=== PATIENT | male | born 1950 | race Caucasian/White ===

== ENCOUNTER 2017-11-10 17:41 | Emergency (ER) | payer OTHER ==
[2017-11-10 18:12] LABS: Urine Blood NEGATIVE (NEG); Urine Glucose NEGATIVE (NEG); Urine Protein NEGATIVE (NEG); Urine Specific Gravity 1.015 (1.005-1.030)
[2017-11-10] MEDS ORDERED: NA CHLORIDE 0.9% 1,000 ML ONE (18:18)
--- NOTE | 2017-11-10 18:28 | RAD REPORT ---
EXAM DESCRIPTION: CT - Head Brain Wo Cont - 11/10/2017 6:16 pm CLINICAL HISTORY: Syncope COMPARISON: None. TECHNIQUE: All CT scans are performed using dose optimization technique as appropriate and may inclu de automated exposure control or mA/KV adjustment according to patient size. FINDINGS: No intracranial hemorrhage, hydrocephalus or extra-axial fluid collection.Small old lacuna e are present in the basal ganglia bilaterally.No areas of brain edema or evidence of midline shift. The paranasal sinuses and mastoids are clear. The calvarium is intact. IMPRESSION: No acute intracranial abnormality.
--- NOTE | 2017-11-10 18:39 | RAD REPORT ---
EXAM DESCRIPTION: RAD - Chest Single View - 11/10/2017 6:30 pm CLINICAL HISTORY: Syncope, chest pain COMPARISON: 09/07/2014, 04/17/2008 FINDINGS: Portable technique limits examination quality. The lungs are grossly clear. The heart is normal in size. No displaced fractures. IMPRESSION: No acute intrathoracic process suspected.
--- NOTE | 2017-11-10 18:40 | ER ---
Nurse's Notes [facility] Name: Akira Resendiz Jr Age: 67 yrs Sex: Male : 1950 Arrival Date: 11/10/2017 Time: 17:48 Bed 24 Private MD: Diagnosis: Presentation: 11/10 17:49 Presenting complaint: Patient states: He was standing on the porch, when he started to aj1 feel light-headed and passed out. States that his family caught him and assisted him to the ground. Patient was discharged from [facility] yesterday where they were attempting to treat a occlusion in his carotid artery. Family states that patient was unconscious for approximately 30 seconds. Patient denies chest pain, SOB, palpitations. Reports light headedness and dizziness. Transition of care: patient was not received from another setting of care. Onset of symptoms was November 10, 2017. Risk Assessment: Do you want to hurt yourself or someone else? Patient reports no desire to harm self or others. Initial Sepsis Screen: Does the patient meet any 2 criteria? No. Patient's initial sepsis screen is negative. Does the patient have a suspected source of infection? No. Patient's initial sepsis screen is negative. Care prior to arrival: Medication(s) given: Normal saline infusion, 250 cc IV initiated. 20 GA, in the right antecubital area, Glucose check: 100. 17:49 Method Of Arrival: [facility]: [facility] aj1 17:49 Acuity: WILI 3 aj1 Triage Assessment: 17:57 General: Appears in no apparent distress. comfortable, Behavior is calm, cooperative, aj1 appropriate for age. Pain: Denies pain. Neuro: Level of Consciousness is awake, alert, obeys commands, Reports a syncopal episode. 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 - Social history:: Smoking status: Patient uses tobacco products, 2-3 cigarettes per day. - Ebola Screening: : No symptoms or risks identified at this time. - Family history:: not pertinent. Screenin:58 Abuse screen: Denies threats or abuse. Denies injuries from another. Nutritional aj1 screening: No deficits noted. Tuberculosis screening: No symptoms or risk factors identified. 20:53 Fall Risk None identified. aj1 Assessment: 17:58 General: Appears in no apparent distress. comfortable, Behavior is calm, cooperative, aj1 appropriate for age. Pain: Denies pain. Neuro: Level of Consciousness is awake, alert, obeys commands, Oriented to person, place, time, situation, Edge Stripper are equal bilaterally Moves all extremities. Speech is normal, Facial symmetry appears normal, Intact Reports a syncopal episode Denies blurred vision headache. Cardiovascular: Denies chest pain, palpitations, shortness of breath, Heart tones S1 S2 present Patient's skin is warm and dry. Rhythm is regular. Respiratory: Airway is patent Respiratory effort is even, unlabored, Respiratory pattern is regular, symmetrical, Breath sounds are clear bilaterally. GI: No signs and/or symptoms were reported involving the gastrointestinal system. : No signs and/or symptoms were reported regarding the genitourinary system. EENT: No signs and/or symptoms were reported regarding the EENT system. Derm: No signs and/or symptoms reported regarding the dermatologic system. Skin is pink, warm \T\ dry. normal. Musculoskeletal: No signs and/or symptoms reported regarding the musculoskeletal system. Circulation, motion, and sensation intact. 18:45 Reassessment: Patient states that he does not want to be admitted, and would like to aj talk to Dr. Shields, notified Dr. Shields of patient request. 18:45 Reassessment: Patient appears in no apparent distress at this time. No changes from aj1 previously documented assessment. Patient and/or family updated on plan of care and expected duration. Pain level reassessed. Patient is alert, oriented x 3, equal unlabored respirations, skin warm/dry/pink. 19:00 Reassessment: Ultrasound at bedside to take patient, Dr. Shields says he will wait and aj1 talk to the patient when he returns from ultrasound. 19:55 Reassessment: Patient states that he does not want to be admitted, he feels fine now aj1 and he is not feeling dizzy or light headed at all. Notified VESTA Steiner of patient complaint. 20:00 Reassessment: VESTA Steiner at bedside to talk to patient about risks of leaving AMA. aj1 Vital Signs: 17:57 BP 166 / 98; Pulse 92; Resp 15; Temp 98.1; Pulse Ox 99% on R/A; Weight 83.01 kg; Height aj1 6 ft. 0 in. (182.88 cm); Pain 0/10; 20:13 BP 158 / 85; Pulse 81; Resp 18; Pulse Ox 99% ; aj1 20:50 BP 152 / 75; Pulse 88; Resp 18; Pulse Ox 97% ; aj1 17:57 Body Mass Index 24.82 (83.01 kg, 182.88 cm) aj1 ED Course: 17:48 Patient arrived in ED. aj1 17:49 Sophia Loco, RN is Primary Nurse. aj1 17:54 Triage completed. aj1 17:57 Arm band placed on. aj1 17:58 Patient has correct armband on for positive identification. Placed in gown. Bed in low aj1 position. Call light in reach. Side rails up X 1. monitor worker on. Pulse ox on. NIBP on. 17:58 No provider procedures requiring assistance completed. Maintain EMS IV. Dressing aj1 intact. Good blood return noted. Site clean \T\ dry. Gauge \T\ site: 20 g to right FA. 18:01 Aayush Shields MD is Attending Physician. maninder 18:16 CT Head Brain wo Cont In Process Unspecified. EDMS 18:27 X-ray completed. Portable x-ray completed in exam room. Patient tolerated procedure mh1 well. 18:31 XRAY Chest (1 view) In Process Unspecified. EDMS 18:39 Brad Ramsey MD is Hospitalizing Provider. maninder 20:53 IV discontinued, intact, bleeding controlled, No redness/swelling at site. Pressure aj1 dressing applied. Administered Medications: 19:04 Drug: NS 0.9% 500 ml Route: IV; Rate: bolus; Site: right forearm; aj1 20:53 Follow up: IV Status: Completed infusion; IV Intake: 1000ml aj1 19:04 Drug: NS 0.9% 1000 ml Route: IV; Rate: 125 ml/hr; Site: left forearm; aj1 20:52 Follow up: IV Status: Completed infusion aj1 20:15 Not Given (Patient states he already took his aspirin today): Aspirin 81 mg PO once aj1 20:16 Not Given (Patient states that he already took his Plavix today): PlaVIX 75 mg PO once; aj1 give if not taking today already Intake: 20:53 IV: 1000ml; Total: 1000ml. aj1 Outcome: 18:40 Decision to Hospitalize by Provider. [facility] 20:53 AMA AMA form signed aj1 20:53 Condition: unchanged 20:55 Patient left the ED. aj1 Signatures: Dispatcher [employer] Sophia Caballero RN RN aj1 Aayush Shields MD MD cha Harvey, Martha [facility]
--- NOTE | 2017-11-10 18:40 | EDPHYS ---
Physician Documentation [facility] Name: Akira Resendiz Jr Age: 67 yrs Sex: Male : 1950 Arrival Date: 11/10/2017 Time: 17:48 Bed 24 Private MD: ED Physician Aayush Shields HPI: 11/10 18:33 This 67 yrs old Male presents to ER via EMS with complaints of Syncope. maninder 18:33 The patient has experienced syncope, became unresponsive. Onset: The symptoms/episode maninder began/occurred just prior to arrival. Duration: This was a single episode, that lasted 30 second(s). Context: the episode(s) was witnessed, by family. Associated injury: The patient did not suffer any apparent associated injury. Associated signs and symptoms: The patient has no apparent associated signs or symptoms. Current symptoms: Currently, the patient is not experiencing any symptoms. The patient has not experienced similar symptoms in the past. 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 - Social history:: Smoking status: Patient uses tobacco products, 2-3 cigarettes per day. - Ebola Screening: : No symptoms or risks identified at this time. - Family history:: not pertinent. ROS: 18:33 Constitutional: Negative for fever, chills, and weight loss, Eyes: Negative for injury, maninder pain, redness, and discharge, ENT: Negative for injury, pain, and discharge, Neck: Negative for injury, pain, and swelling, Cardiovascular: Negative for chest pain, palpitations, and edema, Respiratory: Negative for shortness of breath, cough, wheezing, and pleuritic chest pain, Abdomen/GI: Negative for abdominal pain, nausea, vomiting, diarrhea, and constipation, Back: Negative for injury and pain, : Negative for injury, bleeding, discharge, and swelling, MS/Extremity: Negative for injury and deformity, Skin: Negative for injury, rash, and discoloration, Psych: Negative for depression, anxiety, suicide ideation, homicidal ideation, and hallucinations, Allergy/Immunology: Negative for hives, rash, and allergies, Endocrine: Negative for neck swelling, polydipsia, polyuria, polyphagia, and marked weight changes, Hematologic/Lymphatic: Negative for swollen nodes, abnormal bleeding, and unusual bruising. 18:33 Neuro: Positive for syncope, weakness. Exam: 18:33 Constitutional: This is a well developed, well nourished patient who is awake, alert, maninder and in no acute distress. Head/Face: Normocephalic, atraumatic. Eyes: Pupils equal round and reactive to light, extra-ocular motions intact. Lids and lashes normal. Conjunctiva and sclera are non-icteric and not injected. Cornea within normal limits. Periorbital areas with no swelling, redness, or edema. ENT: Nares patent. No nasal discharge, no septal abnormalities noted. Tympanic membranes are normal and external auditory canals are clear. Oropharynx with no redness, swelling, or masses, exudates, or evidence of obstruction, uvula midline. Mucous membranes moist. Neck: Trachea midline, no thyromegaly or masses palpated, and no cervical lymphadenopathy. Supple, full range of motion without nuchal rigidity, or vertebral point tenderness. No Meningismus. Chest/axilla: Normal chest wall appearance and motion. Nontender with no deformity. No lesions are appreciated. Cardiovascular: Regular rate and rhythm with a normal S1 and S2. No gallops, murmurs, or rubs. Normal PMI, no JVD. No pulse deficits. Respiratory: Lungs have equal breath sounds bilaterally, clear to auscultation and percussion. No rales, rhonchi or wheezes noted. No increased work of breathing, no retractions or nasal flaring. Abdomen/GI: Soft, non-tender, with normal bowel sounds. No distension or tympany. No guarding or rebound. No evidence of tenderness throughout. Back: No spinal tenderness. No costovertebral tenderness. Full range of motion. Male : Normal genitalia with no discharge or lesions. Skin: Warm, dry with normal turgor. Normal color with no rashes, no lesions, and no evidence of cellulitis. MS/ Extremity: Pulses equal, no cyanosis. Neurovascular intact. Full, normal range of motion. Neuro: Awake and alert, GCS 15, oriented to person, place, time, and situation. Cranial nerves II-XII grossly intact. Motor strength 5/5 in all extremities. Sensory grossly intact. Cerebellar exam normal. Normal gait. Psych: Awake, alert, with orientation to person, place and time. Behavior, mood, and affect are within normal limits. Vital Signs: 17:57 BP 166 / 98; Pulse 92; Resp 15; Temp 98.1; Pulse Ox 99% on R/A; Weight 83.01 kg; Height aj1 6 ft. 0 in. (182.88 cm); Pain 0/10; 20:13 BP 158 / 85; Pulse 81; Resp 18; Pulse Ox 99% ; aj1 20:50 BP 152 / 75; Pulse 88; Resp 18; Pulse Ox 97% ; aj1 17:57 Body Mass Index 24.82 (83.01 kg, 182.88 cm) [facility] MDM: 18:01 Patient medically screened. [facility] 18:36 Data reviewed: vital signs, nurses notes, lab test result(s), EKG, radiologic studies, [facility] CT scan, plain films. 11/10 18:02 Order name: Basic Metabolic Panel; Complete Time: 19:30 [facility] 11/10 18:02 Order name: BNP; Complete Time: 19:30 [facility] 11/10 18:02 Order name: CBC with Diff; Complete Time: :30 [facility] 11/10 18:02 Order name: Ckmb; Complete Time: 19:30 [facility] 11/10 18:02 Order name: CPK; Complete Time: 19:30 [facility] 11/10 18:02 Order name: LFT's; Complete Time: 19:30 [facility] 11/10 18:02 Order name: Magnesium; Complete Time: 19:30 [facility] 11/10 18:02 Order name: PT-INR; Complete Time: 19:30 [facility] 11/10 18:02 Order name: Ptt, Activated; Complete Time: 19:30 [facility] 11/10 18:02 Order name: Troponin (emerg Dept Use Only); Complete Time: 19:30 [facility] 11/10 18:02 Order name: XRAY Chest (1 view); Complete Time: 19:03 [facility] 11/10 18:02 Order name: Lipase; Complete Time: 19:30 [facility] 11/10 18:02 Order name: Urine Culture [facility] 11/10 18:11 Order name: Urine Dipstick--Ancillary (enter results); Complete Time: 19:03 ag 11/10 18:02 Order name: EKG; Complete Time: 18:03 maninder 11/10 18:02 Order name: Cardiac monitoring; Complete Time: 18:08 maninder 11/10 18:02 Order name: EKG - Nurse/Tech; Complete Time: 18:54 [facility] 11/10 18:02 Order name: IV Saline Lock; Complete Time: 18:09 [facility] 11/10 18:02 Order name: Labs collected and sent; Complete Time: 18:54 [facility] 11/10 18:02 Order name: O2 Per Protocol; Complete Time: 18:09 [facility] 11/10 18:02 Order name: O2 Sat Monitoring; Complete Time: 18:09 [facility] 11/10 18:02 Order name: Urine Dipstick-Ancillary (obtain specimen); Complete Time: 18:09 [facility] 11/10 18:02 Order name: CT Head Brain wo Cont; Complete Time: 19:03 [facility] 11/10 18:33 Order name: Carotid Artery Bilateral [facility] 11/10 18:45 Order name: CONS Physician Consult [facility] 11/10 20:00 Order name: US [facility] Administered Medications: 19:04 Drug: NS 0.9% 500 ml Route: IV; Rate: bolus; Site: right forearm; aj1 20:53 Follow up: IV Status: Completed infusion; IV Intake: 1000ml aj1 19:04 Drug: NS 0.9% 1000 ml Route: IV; Rate: 125 ml/hr; Site: left forearm; aj1 20:52 Follow up: IV Status: Completed infusion aj1 20:15 Not Given (Patient states he already took his aspirin today): Aspirin 81 mg PO once aj1 20:16 Not Given (Patient states that he already took his Plavix today): PlaVIX 75 mg PO once; aj1 give if not taking today already Disposition: 11/10/17 20:54 Patient has left against medical advice. - Patients states they are going to Home. - Condition is Fair. Signatures: Dispatcher [employer] EDSophia Chang RN RN aj1 Webb, Martha, RN RN mw Anderson, Corey, MD MD cha Corrections: (The following items were deleted from the chart) 19:18 18:40 Hospitalization Ordered by Brad Ramsey MD for Observation. Preliminary diagnosis is Syncope and collapse. Bed requested for Telemetry/MedSurg (observation). Status is Observation. Condition is Stable. Problem is new. Symptoms have improved. UTI on Admission? No. maninder 20:54 19:18 11/10/2017 18:40 Hospitalization Ordered by Brad Ramsey MD for Observation. aj1 Preliminary diagnosis is Syncope and collapse. Bed requested for Telemetry/MedSurg (observation). Status is Observation. Condition is Stable. Problem is new. Symptoms have improved. UTI on Admission? No. mw 20:55 20:54 11/10/2017 20:54 Patients has left against medical advice. Patient states they aj1 are going to Home. Condition is Fair. aj1
[2017-11-10 19:09] LABS: Absolute Lymphocytes (CBC) 1.3 K/uL (0.7-4.9); Absolute Monocytes 0.5 K/uL (0.1-1.3); Absolute Neutrophil 6.3 K/uL (1.8-8.0); Basophils % 0.3 % (0-1.3); Eosinophils % 2.1 % (0-4.4); Hematocrit 43.9 % (39.6-49.0); Lymphocytes % 16.1 % (15.3-44.8); MCH 30.6 pg (27.0-35.0); MPV 8.3 fL (7.6-11.3); Monocytes % 5.5 % (3.3-12.3); RBC Red Blood Cell Count 4.72 M/uL (4.33-5.43)
[2017-11-10 19:13] LABS: Protime INR 1.03
[2017-11-10 19:17] LABS: Potassium 3.8 mEq/L (3.6-5.0)
[2017-11-10 19:24] LABS: Bilirubin Direct 0.2 mg/dL (0-0.2); Bilirubin Total 0.9 mg/dL (0.3-1.2); CKMB Creatine Kinase MB 1.4 ng/ml (0.3-4.0); Magnesium 1.9 mg/dL (1.8-2.5); Protein, Total 7.5 g/dL (6.0-8.3)
[2017-11-10] MEDS ORDERED: ACETAMINOPHEN 500 MG TAB PO PRN (19:57)
[2017-11-10] MEDS ORDERED: ALPRAZOLAM 0.25 MG TABLET PO PRN (19:57)
[2017-11-10] MEDS ORDERED: MORPHINE 4 MG/ML SYR IV PRN (19:57)
--- NOTE | 2017-11-10 19:59 | RAD REPORT ---
EXAM DESCRIPTION: CHRISTOPHER - CP - 11/10/2017 7:51 pm CLINICAL HISTORY: Syncope. COMPARISON: None. TECHNIQUE: Real-time sonographic evaluation of both carotid systems was performed. Doppler interroga tion was performed with waveform tracing bilaterally. FINDINGS: The left internal carotid artery appears completely occluded. The left external carotid ar aletha was not well visualized. The left common carotid artery demonstrates significantly diminished fl ow. Moderate mixed plaquing is present involving the proximal right internal carotid artery. Proximal rig ht ICA demonstrates peak systolic velocity of 187 cm/second. This indicates moderate stenosis estimat ed at 50-70%. Antegrade flow seen in both vertebral arteries. IMPRESSION: Occluded left internal carotid artery. Moderate (50-70%) stenosis proximal left internal carotid artery. Consider followup MR angiography of the neck vessels for more detailed assessment.
[2017-11-11] MEDS ORDERED: LISINOPRIL 10 MG TAB PO SCH (09:00)
[2017-11-11] MEDS ORDERED: ENOXAPARIN 40 MG/0.4 ML SQ SCH (09:00)
[2017-11-11] MEDS ORDERED: ASPIRIN 325 MG TAB PO SCH (09:00)
--- NOTE | 2017-11-11 10:19 | EKG ---
Test Date: 2017-11-10 Test Time: 18:48:18 Impression Printer: BROOK MEASUREMENT RESULTS: Intervals: Rate: 89 CA: 152 QRSD: 76 QT: 354 QTc: 430 [place]: P: 58 CA: 152 QRS: 8 T: 49 INTERPRETIVE STATEMENTS: Normal sinus rhythm Septal infarct, age undetermined Abnormal ECG No previous ECG available for comparison Electronically Signed On 11-11-17 10:18:46 CDT by Faisal Gonzalez
--- NOTE | 2017-11-11 12:11 | P.PN ---
Date of Service: 11/11/17 Patient left against medical advice before being seen.
== END 2017-11-10 20:50 | disposition left against medical advice (07) ==
LOC: ER 17:41 → ERHOLD 18:41 → UNDOADMOB 18:41 → ERHOLD 20:18 → 2ND 20:18 → ER 20:50 → UNDODISOB 20:50
DX: R53.1 Weakness (principal); E78.5 Hyperlipidemia, unspecified; I25.2 Old myocardial infarction; F17.210 Nicotine dependence, cigarettes, uncomplicated; Z79.01 Long term (current) use of anticoagulants; Z79.82 Long term (current) use of aspirin; Z85.12 Personal history of malignant neoplasm of trachea
CPT/HCPCS: 36415; 70450; 71045; 80048; 80076; 81003; 82550; 82553; 83690; 83735; 83880; 84484; 85025; 85610; 85730; 87086; 87088; 93005; 93880; 96360; 96361; 99284; G0378 ×2; J7030

== ENCOUNTER 2022-11-02 07:15 | Day surgery (SDC) | payer OTHER ==
--- NOTE | 2022-10-28 14:50 | RAD REPORT ---
EXAM DESCRIPTION: RAD - Chest Pa And Lat (2 Views) - 10/28/2022 2:44 pm CLINICAL HISTORY: pre op for surgery Chest pain. COMPARISON: Chest Single View dated 11/10/2017; CHEST PA AND LAT 2 VIEW dated 09/07/2012; CHEST PA AND LAT 2 VIEW dated 04/17/2008; CHEST PA AND LAT 2 VIEW dated 09/21/2002 TECHNIQUE: PA and lateral views of the chest were obtained. FINDINGS: The lungs are hyperexpanded compatible with COPD. The heart is upper limit of normal in si ze. No fracture or aggressive bony process. IMPRESSION: COPD without acute process identified. The USPSTF recommends annual screening for lung cancer with low-dose CT (LDCT) in adults aged 50 to 80 years who have a 20 pack-year smoking history and currently smoke or have quit within the past 15 years.
[2022-10-28 15:00] LABS: Absolute Lymphocytes (CBC) 2.2 K/uL (0.7-4.9); Lymphocytes % 31.1 % (15.3-44.8); MCV 93.6 fL (80-100); MPV 8.6 fL (7.6-11.3); RBC Red Blood Cell Count 4.27 M/uL (4.33-5.43)
[2022-10-28 15:17] LABS: Potassium 4.4 mEq/L (3.5-5.1)
[2022-11-02] MEDS ORDERED: Ringers Lactate 1,000 ML IV ONE (07:37)
[2022-11-02] MEDS ORDERED: CEFAZOLIN SODIUM 1 GM/VIAL ONE (07:38)
[2022-11-02] MEDS ORDERED: MIDAZOLAM HCL 2 MG/2 ML INJ ONE (08:12)
[2022-11-02] MEDS ORDERED: ONDANSETRON 4 MG/2 ML VIAL ONE (08:12)
[2022-11-02] MEDS ORDERED: FENTANYL CITR 100 MCG/2 ML ONE (08:12)
[2022-11-02] MEDS ORDERED: LIDOCAINE 2% MPF 5 ML VIAL ONE (08:12)
[2022-11-02] MEDS ORDERED: propofoL 200 MG/20 ML VIAL IV ONE (08:12)
[2022-11-02] MEDS ORDERED: dexAMETHasone 10 MG/ML VIAL ONE (08:13)
[2022-11-02] MEDS ORDERED: KETOROLAC 30 MG/ML INJ ONE (09:12)
[2022-11-02] MEDS ORDERED: Phenylephrine HCl 10 MG/ML 1 ML VIAL ONE (09:34)
--- NOTE | 2022-11-02 09:36 | P.BOP ---
Preoperative diagnosis: recurrent left inguinal hernia Postoperative diagnosis: same Primary procedure: Open repair of tender recurrent left inguinal hernia with mesh Estimated blood loss: <10cc Specimen: sac and lipoma of cord Findings: as above Anesthesia: General Complications: None Implants: mesh sheet and plug Transferred to: Recovery Room Condition: Good
[2022-11-02 10:36] VITALS: BP 158/104; TEMP 97.5; O2SAT 98
[2022-11-02] MEDS ORDERED: TAMSULOSIN 0.4 MG SR CAP ONE (10:38)
[2022-11-02] MEDS ORDERED: CODEINE 30MG/APAP 300MG TAB ONE (10:39)
--- NOTE | 2022-11-02 14:07 | OP ---
Date of Procedure: 11/02/2022 Surgeon: Stuart Hunter MD Preoperative Diagnosis: Recurrent left inguinal hernia. Postoperative Diagnosis: Recurrent left inguinal hernia. Procedure: Open repair of tender recurrent incarcerated left inguinal hernia with mesh. Estimated Blood Loss: Less than 10 mL. Specimen: Sacral lipoma of the cord. Findings: When we opened the hernia sac, there is some intestines present in that region. Some adhe sions were removed. After removed the adhesions, the intestines were carefully reduced in the abdomi nal cavity after fully inspecting to make sure it is viable. The patient also had lipoma of the cord . This was ligated and hernia sac was ligated too. Complications: None. Anesthesia: General plus local. Implant: Mesh used is sheath and plug. Indication: This is the case of a male, who comes to us with a hernia in the left side. He had pain and discomfort. It is becoming more difficult to be reduced to the point that today it has not been reduced. He claimed it was fixed in 2011 by a local surgeon, but he is not sure that he used mesh o r not. The hernia is obviously tender, so he wants that repaired once again. The benefits, alternat valerie, and risks of open repair of recurrent incarcerated left inguinal hernia with mesh fully explain ed, which include, but not limited to infection, bleeding, damage to adjacent structures, anesthesia complication, chronic pain, chronic numbness, recurrence, OK, and even . He also understands th is may not relieve any symptoms. He might need more than one surgical intervention. He understands that we will be using mesh in that region most likely. So, pros and cons of mesh use were discussed with the patient and all the questions were answered to his satisfaction. He signed a consent. The area was marked by me and the patient in the holding room. Procedure In Detail: The patient was brought to the operating room, placed in supine position. Anes thesia was done without complication. The inguinal and genitalia were prepped and draped in the usua l sterile fashion. Incision was made after time-out was called on the left inguinal region. The inc ision was carried down to Tino fascia until we found the external oblique aponeurosis that was open ed in direction of the fibers. Some adhesions were present in that area. Spermatic cord was looped around with the Valdo making sure we treat it gently not to cause any tear. We identified an indir ect hernia and from the spermatic cord structures. There was also a lipoma of the cord roseanna t was carefully ligated with 3-0 chromic after making sure that the spermatic cord structures includi ng vas deferens were protected. Hernia sac was opened. We had some small bowel content that was via ble, carefully reduced back into the abdominal cavity after removing some adhesions. Then, we twiste d the hernia sac and then we suture ligated that with a Prolene twice once again protecting the intes tines all time. At that moment, I proceeded then to place the mesh plug on the deep inguinal ring an d secured that in place with VersaTack. Mesh sheath was placed in the floor of the canal securing th at to the pubic tubercle, shelving edge of the inguinal ligament, and transversalis fascia and the ta ils of this looped around the spermatic cord making sure we do not have any strangulation. The ilioi nguinal nerve and iliohypogastric nerve were protected at all times. At that moment, we irrigated th e area, no bleeding. We did not identify any other hernia. So, I proceeded to bring the ilioinguina l nerve and iliohypogastric nerve back into the inguinal canal, reconstructed the superficial inguina l ring and closed the external oblique aponeurosis with Prolene stitches. The area was irrigated. S ubcutaneous tissue was closed with 3-0 chromic and skin with oliverio. Sponge count, instrument count s correct. The patient tolerated the procedure well. The patient was sent to recovery in stable condition. At the end of the case, testicles are within the scrotum. AMY/LISANDRO Voice ID: [id number] Report ID: [id number]
--- NOTE | 2022-11-02 14:13 | DS ---
Date of Discharge: 11/02/2022 Diagnosis: Recurrent left inguinal hernia. Procedure: Open repair of tender recurrent left inguinal hernia with mesh. Activity: As tolerated. No heavy lifting. Plan: Follow up in my office in 1 week. Call for appointment at [phone]. Keep area dry for 48 moustapha rs, then may shower. Cold compression to the left inguinal region for the next 24 hours. 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 AMY/LISANDRO Voice ID: [id number] Report ID: [id number]
== END 2022-11-02 11:04 | disposition home or self-care (01) ==
LOC: OR 07:15
PROVIDERS: ATTEND Surgery
PROC: 0YU60JZ Supplement Left Inguinal Region with Synthetic Substitute, Open Approach (ICD-10-PCS; principal; 2022-11-02 09:00)
DX: K40.31 Unilateral inguinal hernia, with obstruction, without gangrene, recurrent (principal)
CPT/HCPCS: 85025; 80048; 36415; 88302; 71046; 49521; J2704; J2370; J2001; J2250; J3010; J1100; J2405; J7120; J0690